=== PATIENT | female | born 1935 | race Caucasian/White ===

== ENCOUNTER 2022-08-15 08:50 | Day surgery (SDC) | payer MEDICARE, OTHER ==
[2022-08-15] MEDS ORDERED: Timolol Maleate 0.5% Ophth Soln 5 ML Bottle EYELF ONE (09:15)
[2022-08-15] MEDS ORDERED: Sodium Chloride 0.9% 10 ML Syringe FLUSH PRN (09:15)
[2022-08-15] MEDS ORDERED: Proparacaine 0.5% Ophth Soln 15 ML Bottle EYELF ONE ×2 (09:15→10:14)
[2022-08-15] MEDS ORDERED: Phenylephrine 10% Ophth Soln 5 ML Bot EYELF PRN (09:15)
[2022-08-15] MEDS ORDERED: Ondansetron 4 MG/2 ML SDV IVPUSH PRN (09:15)
[2022-08-15] MEDS ORDERED: Cataract Ophth Solution EYELF ONE (09:15)
[2022-08-15] MEDS ORDERED: Tropicamide 1% Ophth Soln 15 ML Bottle EYELF ONE (09:15)
[2022-08-15] MEDS ORDERED: Acetaminophen 325 MG Tab PO PRN (09:15)
[2022-08-15] MEDS ORDERED: Moxifloxacin 0.5% Ophth Soln 3 ML Bottle EYELF ONE (09:15)
[2022-08-15] MEDS ORDERED: Povidone-Iodine 5% Sterile Ophth Soln 30 ML Bottle EYELF ONE ×2 (09:15→10:15)
[2022-08-15] MEDS ORDERED: Acetaminophen/Codeine 300-30 MG Tab PO PRN (09:15)
[2022-08-15] MEDS ORDERED: Balanced Salt Solution Ophth Irrig 500 ML Bottle IOCULAR ONE (10:16)
[2022-08-15] MEDS ORDERED: Lidocaine 1% 30 ML SDV ONE (10:16)
[2022-08-15] MEDS ORDERED: Chondroitin Sulfate/Hyaluronate Sodium Ophth Inj 0.75 ML Syringe EYELF ONE (10:17)
[2022-08-15] MEDS ORDERED: Vancomycin 500 MG SDV EYELF ONE (10:17)
[2022-08-15] MEDS ORDERED: Diclofenac Sodium 0.1% Ophth Soln 5 ML Bottle EYELF ONE (10:27)
[2022-08-15] MEDS ORDERED: Apraclonidine 0.5% Ophth Soln 5 ML Bot EYELF ONE (10:27)
[2022-08-15] MEDS ORDERED: Dexamethasone/Neomycin/Polymyxin B Ophth Oint 3.5 GM Tube EYELF ONE (10:28)
== END 2022-08-15 11:05 | disposition home or self-care (01) ==
LOC: DL.SDS 08:50
PROVIDERS: ATTEND Ophthalmology
DX: H25.812 Combined forms of age-related cataract, left eye (principal); E03.9 Hypothyroidism, unspecified; E78.00 Pure hypercholesterolemia, unspecified; Z98.890 Other specified postprocedural states; Z90.710 Acquired absence of both cervix and uterus; Z79.899 Other long term (current) drug therapy; Z79.890 Hormone replacement therapy; Z85.3 Personal history of malignant neoplasm of breast
CPT/HCPCS: 00142; A9270-GY; J3370; J3490; V2632

== ENCOUNTER 2022-08-24 09:19 | Day surgery (SDC) | payer MEDICARE, OTHER ==
[2022-08-24] MEDS ORDERED: Midazolam 1 MG/ML 2 ML SDV IV ONE ×2 (09:20)
[2022-08-24] MEDS ORDERED: Dexamethasone 4 MG/ML SDV IV ONE ×2 (09:20)
[2022-08-24] MEDS ORDERED: Sodium Chloride 0.9% 10 ML Syringe IV ONE (09:20)
[2022-08-24] MEDS ORDERED: Tropicamide 1% Ophth Soln 15 ML Bottle EYERT ONE (09:45)
[2022-08-24] MEDS ORDERED: Acetaminophen/Codeine 300-30 MG Tab PO PRN (09:45)
[2022-08-24] MEDS ORDERED: Cataract Ophth Solution EYERT ONE (09:45)
[2022-08-24] MEDS ORDERED: Timolol Maleate 0.5% Ophth Soln 5 ML Bottle EYERT ONE (09:45)
[2022-08-24] MEDS ORDERED: Acetaminophen 325 MG Tab PO PRN (09:45)
[2022-08-24] MEDS ORDERED: Phenylephrine 10% Ophth Soln 5 ML Bot EYERT PRN (09:45)
[2022-08-24] MEDS ORDERED: Moxifloxacin 0.5% Ophth Soln 3 ML Bottle EYERT ONE (09:45)
[2022-08-24] MEDS ORDERED: Povidone-Iodine 5% Sterile Ophth Soln 30 ML Bottle EYERT ONE ×2 (09:45→10:27)
[2022-08-24] MEDS ORDERED: Proparacaine 0.5% Ophth Soln 15 ML Bottle EYERT ONE ×2 (09:45→10:27)
[2022-08-24] MEDS ORDERED: Ondansetron 4 MG/2 ML SDV IVPUSH PRN (09:45)
[2022-08-24] MEDS ORDERED: Sodium Chloride 0.9% 10 ML Syringe FLUSH PRN (09:45)
[2022-08-24] MEDS ORDERED: Apraclonidine 0.5% Ophth Soln 5 ML Bot EYERT ONE (10:28)
[2022-08-24] MEDS ORDERED: Diclofenac Sodium 0.1% Ophth Soln 5 ML Bottle EYERT ONE (10:29)
[2022-08-24] MEDS ORDERED: Lidocaine 1% 30 ML SDV ONE (10:30)
[2022-08-24] MEDS ORDERED: Dexamethasone/Neomycin/Polymyxin B Ophth Oint 3.5 GM Tube EYERT ONE (10:30)
[2022-08-24] MEDS ORDERED: Chondroitin Sulfate/Hyaluronate Sodium Ophth Inj 0.75 ML Syringe EYERT ONE (10:31)
[2022-08-24] MEDS ORDERED: Vancomycin 500 MG SDV EYERT ONE (10:31)
[2022-08-24] MEDS ORDERED: Balanced Salt Solution Ophth Irrig 500 ML Bottle IOCULAR ONE (10:31)
== END 2022-08-24 11:15 | disposition home or self-care (01) ==
LOC: DL.SDS 09:19
PROVIDERS: ATTEND Ophthalmology
DX: H25.811 Combined forms of age-related cataract, right eye (principal); E78.00 Pure hypercholesterolemia, unspecified; E03.9 Hypothyroidism, unspecified; Z98.890 Other specified postprocedural states; Z79.899 Other long term (current) drug therapy; Z79.890 Hormone replacement therapy
CPT/HCPCS: 00142; 66984; A9270; J1100; J2250; J3370; V2787; J3490